=== PATIENT | male | born 1965 | race American Indian/Alaskan Native ===

== ENCOUNTER 2018-05-08 08:51 | Day surgery (SDC) | payer BC ==
[2018-05-08] MEDS ORDERED: ECOTRIN PO ONE (09:27)
[2018-05-08] MEDS ORDERED: NACL 0.9% 500 ML 500 ML IV SCH (10:00)
[2018-05-08 10:18] LABS: Basophils # (Auto) 0.1 K/mm3 (0.0-0.1); Basophils % (Auto) 0.9 % (0.0-1.8); Eosinophils # (Auto) 0.5 K/mm3 (0.0-0.4); Eosinophils % (Auto) 7.8 % (0.0-4.3); Hematocrit 42.3 % (35.5-45.6); Hemoglobin 14.7 gm/dl (11.8-15.2); Lymphocytes # (Auto) 1.8 K/mm3 (1.2-5.4); Lymphocytes % (Auto) 26.2 % (13.4-35.0); Mean Corpuscular HGB Conc 35 % (32-34); Mean Corpuscular Hemoglobin 33 pg (28-32); Mean Corpuscular Volume 95 fl (84-94); Monocytes # (Auto) 0.8 K/mm3 (0.0-0.8); Monocytes % (Auto) 12.6 % (0.0-7.3); Platelet Count 177 K/mm3 (140-440); Red Blood Count 4.45 M/mm3 (3.65-5.03); Red Cell Distribution Width 13.5 % (13.2-15.2)
[2018-05-08 10:40] LABS: BUN/Creatinine Ratio 18; Blood Urea Nitrogen 14 mg/dL (9-20); Calcium 9.2 mg/dL (8.4-10.2); Hemolysis Index 60
[2018-05-08 10:49] LABS: INR 0.91 (0.87-1.13)
[2018-05-08] MEDS ORDERED: HEPARIN/NS 5000 UNIT/500ML(CATH LAB) 1,000 ML IR ONE (11:53)
[2018-05-08] MEDS ORDERED: XYLOCAINE 2% INFILTRATI ONE (11:53)
[2018-05-08] MEDS ORDERED: CALAN ONE (11:53)
[2018-05-08] MEDS ORDERED: HEPARIN 10,000 UNITS/10 ML ONE (11:53)
[2018-05-08] MEDS ORDERED: NITROGLYCERIN SYRINGE 0 ML ONE (11:54)
[2018-05-08] MEDS ORDERED: SUBLIMAZE ONE (11:54)
[2018-05-08] MEDS ORDERED: VERSED ONE (11:54)
--- NOTE | 2018-05-08 13:22 | Cardiac Catherization Report ---
PROCEDURE: Cardiac catheterization. CLINICAL INFORMATION: The patient is a 53-year-old -[place] gentleman with history of hypertension, hyperlipidemia, who is scheduled for a knee surgery. He had a nuclear imaging done, which showed moderate defect in the inferior septal region with significant reversibility. Hence, scheduled for cardiac catheterization for definitive diagnosis and treatment. The patient is aware of the procedure, potential complications and alternatives of therapy. The patient was evaluated for moderate sedation and he was felt to be an appropriate candidate and received IV Versed and fentanyl. DESCRIPTION OF PROCEDURE: The patient was brought to the catheterization laboratory in a fasting condition. The right wrist area and forearm thoroughly cleansed with a chlorhexidine solution. Sterile drapes were applied. Local anesthesia was given using 2% Xylocaine. Right radial artery puncture was made using 21-gauge arterial puncture needle, 5-Romanian slender sheath was introduced. The patient received 5 mg of intra-arterial verapamil and 3000 units of intravenous heparin. Subsequently, 5-Romanian multipurpose catheter was used to obtain the angiograms of the left coronary artery in multiple views and left ventriculogram and subsequently, JR4 catheter was used to obtain the angiograms of the right coronary artery. It is to be noted there is marked tortuosity of the subclavian and innominate artery. At the end of the procedure, catheter and sheath were removed. Good hemostasis was achieved with pressure bandage. No untoward complications were noted. It is to be noted the patient tolerated the moderate sedation well. He was monitored throughout the procedure with EKG monitoring, pulse oximetry, and hemodynamic monitoring. The patient's sedation started at 12:31 and and was monitored up to 12:47 noon time. No untoward complications were noted. Following findings were noted. HEMODYNAMICS: 1. Opening aortic pressure was 119/79, left ventricular pressure 119/17, no gradient across the aortic valve. Estimated ejection fraction of 55-60% noted. 2. Left ventriculogram done in DINH projection showed normal-sized left ventricle with normal contractility. End-diastolic and systolic volumes are normal. Mitral regurgitation could not be evaluated. Right coronary artery dominant vessel arises normally from right coronary cusp, angiographically smooth and normal. 3. Left coronary artery arises normally from that left coronary cusp, left main without significant disease and may be mildly ectatic. Proximal LAD is ectatic mildly but otherwise rest of the LAD and its branches, circumflex artery and its branch are angiographically smooth and normal. FINAL IMPRESSION: Mild ectasia of the proximal LAD, otherwise essentially normal coronary anatomy. Normal left ventricular function with almost normal end-diastolic pressure noted. No untoward complications were noted. At this time, the patient will be continued on risk factor modification. Findings were explained to the patient and his family. The patient transferred to the outpatient area in stable condition. JOB# [id number] HARLEY/REHAN
[2018-05-08 15:03] VITALS: BP 108/71
--- NOTE | 2018-05-10 15:50 | Short Stay Summary ---
Short Stay Documentation Date of service: 05/08/18 - History H&P: obtained from office - Allergies and Medications Current Medications: Allergies No Known Allergies Allergy (Verified 10/06/13 21:33) Home Medications Medication Instructions Recorded Confirmed Last Taken Type Lisinopril [Zestril TAB] 20 mg PO DAILY 10/06/13 05/08/18 05/08/18 07:00 History Aspirin [Aspirin TAB] 325 mg PO QDAY 05/08/18 05/08/18 05/07/18 History Atenolol [Tenormin] 25 mg PO DAILY 05/08/18 05/08/18 05/08/18 07:00 History hydroCHLOROthiazide [HCTZ] 25 mg PO DAILY 05/08/18 05/08/18 05/08/18 07:00 History 25mg - Brief post op/procedure progress note Date of procedure: 05/08/18 Pre-op diagnosis: abnormal stress test Post-op diagnosis: same Procedure: LHC - see cath report Anesthesia: local Estimated blood loss: none Condition: stable - Disposition Condition at discharge: Stable Disposition: DC-[id number] TO HOME OR SELFCARE - Discharge Diagnoses (1) Abnormal stress test Status: Acute Short Stay Discharge Plan Activity: advance as tolerated Diet: regular Wound: open to air, keep clean and dry, per your surgeon's advice Follow up with: JERARDO FLEMING MD [Primary Care Provider] - 7 Days Forms: CardCath PCI D/C Instructions
== END 2018-05-08 08:52 | disposition home or self-care (01) ==
LOC: CATHLABREC 08:51
PROVIDERS: ATTEND Internal Medicine
DX: I25.10 Atherosclerotic heart disease of native coronary artery without angina pectoris (principal); I10 Essential (primary) hypertension; K21.9 Gastro-esophageal reflux disease without esophagitis; E78.00 Pure hypercholesterolemia, unspecified; M19.90 Unspecified osteoarthritis, unspecified site; E78.5 Hyperlipidemia, unspecified; Z79.82 Long term (current) use of aspirin; Z79.899 Other long term (current) drug therapy; Z98.890 Other specified postprocedural states; Z79.01 Long term (current) use of anticoagulants
CPT/HCPCS: 36415; 80048; 85025; 85610; 85730; 93005; 93010; 93458; 99156; 99157; C1894; J1644; J2250; J3010; J7040; Q9967